=== PATIENT | female | born 1985 | race African-American/Black ===

== ENCOUNTER 2019-08-30 13:50 | Emergency (ER) | payer OTHER ==
[2019-08-30 14:00] VITALS: BP 145/73; PULSE 84; TEMP 98; BMI 54.5
[2019-08-30] MEDS ORDERED: ALBUTEROL SO4 2.5/IPRATROPIUM 0.5 INH SOL 3 ML VIAL.NEB. NEB ONE (14:17)
--- NOTE | 2019-08-30 14:24 | PDOC ---
History of Present Illness - General Chief Complaint: Respiratory Stated Complaint: ASTHMA ATTACK Time Seen by Provider: 08/30/19 14:01 History Source: Patient Exam Limitations: Clinical Condition - History of Present Illness Initial Comments: 08/30/19 14:19 Patient with past medical history of a asthma presented with complaint of persistent asthma exacerbation since yesterday with nasal congestion, intermittent cough and popping sensation in bilateral ears. Patient reported using rescue inhaler yesterday and today for wheezing but still have wheezing. Patient reported using child's nebulizer last night for wheezing which helped. Patient did not use nebulizer today. Denies shortness of breath, chest pain, palpitation, fever or chills. Patient also report 1 month history of persistent swelling to lateral aspect of left ankle. Patient reported had left ankle fracture over 2 years ago which was treated with cast. Denies any new trauma or injury to left ankle. Patient did not take anything for ankle swelling. Patient reported intermittent aching pain to left ankle. Denies any other symptoms Is this a multiple visit Asthma Patient?: No Timing/Duration: 24 hours Past History - Past Medical History Allergies/Adverse Reactions: Allergies Allergy/AdvReac Type Severity Reaction Status Date / Time egg Allergy Severe throat Verified 08/30/19 14:00 itches strawberry [[place]] AdvReac Mild Itching Verified 08/30/19 14:00 TOMATO Allergy Intermediate Swelling Uncoded 08/30/19 14:00 chocolate AdvReac Mild Itching Uncoded 08/30/19 14:00 Home Medications: Ambulatory Orders Albuterol Sulfate Inhaler - [Ventolin HFA Inhaler -] 1 - 2 inh PO Q4H PRN Albuterol 0.083% Nebulizer Padmini [Ventolin 0.083% Nebulizer Soln -] 1 neb NEB Q6H #20 vial 02/04/15 Ipratropium 0.02% Nebulizer [Atrovent 0.02% Nebulizer -] 1 neb [facility] QID #20 vial 02/04/15 Benzonatate [Tessalon Pearls -] 100 mg PO Q8H PRN #21 capsule 08/30/19 Ipratropium [place] 2 spray NS BID PRN 5 Days #1 spray 08/30/19 Leg Brace [Ankle Brace] 1 each [facility] DAILY #1 each 02/16/20 Methylprednisolone [Medrol Dose Alpesh] 4 mg PO ASDIR #21 tablet 08/30/19 Montelukast Na [Singulair -] 10 mg PO HS #7 tablet 08/30/19 Asthma: Yes Cancer: No Cardiac Disorders: No COPD: No Diabetes: No HTN: No Seizures: No Thyroid Disease: No - Immunization History Immunization Up to Date: Yes - Psycho Social/Smoking Cessation Hx Smoking Status: No Smoking History: Never smoked Have you smoked in the past 12 months: No Number of Cigarettes Smoked Daily: 0 Hx Alcohol Use: No Drug/Substance Use Hx: No Substance Use Type: None Hx Substance Use Treatment: No Review of Systems - Review of Systems Able to Perform ROS?: Yes Is the patient limited Nepalese proficient: No Constitutional: No: Chills, Fever, Malaise HEENTM: Yes: Symptoms Reported, See HPI, Ear Pain (pressure in b/l ears), Nose Congestion. No: Eye Pain, Blurred Vision, Tearing, Recent change in vision, Double Vision, Cataracts, Ocular Prothesis, Ear Discharge, Nose Pain, Tinnitus, Nose Bleeding, Hearing Loss, Throat Pain, Throat Swelling, Mouth Pain, Dental Problems, Difficulty Swallowing, Mouth Swelling, Other Respiratory: Yes: Symptoms reported, See HPI, Cough, Wheezing. No: Orthopnea, Shortness of Breath, SOB with Exertion, SOB at Rest, Stridor, Productive cough, Hemoptysis, Other Cardiac (ROS): No: Symptoms Reported, See HPI, Chest Pain, Edema, Irregular Heart Rate, Lightheadedness, Palpitations, Syncope, Chest Tightness, Other ABD/GI: No: Symptoms Reported, See HPI, Constipated, Diarrhea, Nausea, Vomiting , Abdominal cramping : No: Symptoms Reported Musculoskeletal: Yes: Symptoms Reported, Joint Pain (intermittent aching left ankle pain), Joint Swelling (swelling to lateral side of left ankle) Neurological: No: Symptoms reported, Numbness, Paresthesia, Tingling All Other Systems: Reviewed and Negative *Physical Exam - Vital Signs Last Vital Signs Temp Pulse Resp BP Pulse Ox 98 F 84 18 145/73 98 08/30/19 13:54 08/30/19 13:54 08/30/19 13:54 08/30/19 13:54 08/30/19 13:54 - Physical Exam 08/30/19 14:24 GENERAL: Well developed, well nourished. Awake and alert. No acute distress. CARDIOVASCULAR: Regular rate and rhythm. No murmurs, rubs, or gallops. PULMONARY: No evidence of respiratory distress. Mild diffuse expiratory wheeze. No rales or rhonchi. ABDOMINAL: Soft. Non-tender. Non-distended. No rebound or guarding. No organomegaly. Normoactive bowel sounds MUSCULOSKELETAL : Mild localized swelling to lateral malleolus of left ankle. No swelling to medial malleolus. No tenderness to left ankle. Negative anterior posterior drawer test of left ankle. No bony deformities SKIN: Warm and dry. Normal capillary refill. Mild localized swelling over lateral malleolus of left ankle. No bruising no ecchymosis to left ankle NEUROLOGICAL: Alert, awake, appropriate. No motor deficits in the lower extremities. Gait is normal without ataxia. PSYCHIATRIC: Cooperative. Good eye contact. Appropriate mood and affect. General Appearance: Yes: Nourished, Appropriately Dressed. No: Apparent Distress ED Treatment Course - RADIOLOGY Radiology Studies Ordered: Category Date Time Status ANKLE-LEFT [RAD] Stat Radiology 08/30/19 14:17 Ordered Medical Decision Making - Medical Decision Making 08/30/19 14:21 Patient with past medical history of a asthma presented with complaint of persistent asthma exacerbation since yesterday with nasal congestion, intermittent cough and popping sensation in bilateral ears. Patient reported using rescue inhaler yesterday and today for wheezing but still have wheezing. Patient reported using child's nebulizer last night for wheezing which helped. Patient did not use nebulizer today. Denies shortness of breath, chest pain, palpitation, fever or chills. Patient also report 1 month history of persistent swelling to lateral aspect of left ankle. Patient reported had left ankle fracture over 2 years ago which was treated with cast. Denies any new trauma or injury to left ankle. Patient did not take anything for ankle swelling. Patient reported intermittent aching pain to left ankle. Denies any other symptoms Exam significant for mild localized swelling to lateral malleolus of left ankle. No tenderness to left ankle. No swelling to medial malleolus of left ankle. Negative anterior and posterior drawer test of left ankle. Mild expiratory wheeze diffusely on auscultation with no acute respiratory distress. Patient symptoms likely viral URI with asthma exacerbation. DuoNeb ordered for asthma. X-ray of left ankle ordered to evaluate swelling to left ankle 08/30/19 15:05 X-ray of left ankle shows no acute fracture or dislocation. Patient symptoms likely ankle sprain from previous injury which she keeps spraining it. Patient stable for discharge and will be given prescription for ankle support brace to help support ankle with orthopedics follow-up. Patient with improvement in wheezing post DuoNeb treatment and has no more wheezing at this time. Patient stable for discharge to continue home Ventolin PRN for wheezing and will add Tessalon [place] and Medrol Alpesh for cough with advised to increase fluid intake with PCP follow-up Discharge - Discharge Information Problems reviewed: Yes Clinical Impression/Diagnosis: URI, acute Asthma attack Qualifiers: Asthma severity: mild Asthma persistence: intermittent Qualified Code(s): J45.21 - Mild intermittent asthma with (acute) exacerbation Left ankle sprain Qualifiers: Encounter type: initial encounter Involved ligament of ankle: unspecified ligament Qualified Code(s): S93.402A - Sprain of unspecified ligament of left ankle, initial encounter Condition: Stable Disposition: HOME - Admission No - Additional Discharge Information Prescriptions: Benzonatate [Tessalon Pearls -] 100 mg PO Q8H PRN #21 capsule PRN Reason: Cough Ipratropium [place] 2 spray NS BID PRN 5 Days #1 spray PRN Reason: nasal congestion Leg Brace [Ankle Brace] 1 each MC DAILY #1 each Methylprednisolone [Medrol Dose Alpesh] 4 mg PO ASDIR #21 tablet Montelukast Na [Singulair -] 10 mg PO HS #7 tablet - Follow up/Referral Referrals: Moose Sanon DO [Staff Physician] - - Patient Discharge Instructions Patient Printed Discharge Instructions: DI for Ankle Sprain, DI for Viral Upper Respiratory Infection -- Adult Additional Instructions: Take prescribed medication as prescribed for cough and congestion. Increase fluid intake. Use prescribed ankle brace to help support her ankle and follow- up referred to orthopedics for ankle sprain. Ankle x-ray shows no acute fracture or dislocation - Post Discharge Activity
== END 2019-08-30 15:33 | disposition home or self-care (01) ==
LOC: JERFT 13:50
PROC: 3E0F7GC Introduction of Other Therapeutic Substance into Respiratory Tract, Via Natural or Artificial Opening (ICD-10-PCS; principal; 2019-08-30)
DX: J45.21 Mild intermittent asthma with (acute) exacerbation (principal); J06.9 Acute upper respiratory infection, unspecified; B97.89 Other viral agents as the cause of diseases classified elsewhere; S93.402A Sprain of unspecified ligament of left ankle, initial encounter; X58.XXXA Exposure to other specified factors, initial encounter; Y93.89 Activity, other specified; Y92.89 Other specified places as the place of occurrence of the external cause; Y99.8 Other external cause status; Z91.012 Allergy to eggs; Z91.018 Allergy to other foods
CPT/HCPCS: 73610-TC-LT-FY; 94640; 99283-25